=== PATIENT | female | born 1950 | race American Indian/Alaskan Native ===

== ENCOUNTER 2017-01-29 08:10 | Outpatient (CLI) | payer BC ==
--- NOTE | 2017-01-29 14:41 | Mammography Report ---
BILATERAL DIGITAL SCREENING MAMMOGRAM with CAD: 01/29/17 08:10:00 CLINICAL: Routine screening. COMPARISON:07/15/15 and 07/06/14 FINDINGS: The breasts are mostly fatty with bilateral retroareolar residual fibroglandular densities.A right inferior focal asymmetry is unchanged compared to prior exams. No mass, architectural distortion or suspicious calcifications. IMPRESSION: No mammographic evidence of malignancy. BI-RADS CATEGORY: 2 -- Benign RECOMMENDATION: Routine mammographic screening in one year. COMMENT: Patient follow-up letters are generated by our [employer] application.
== END 2017-01-29 08:11 | disposition home or self-care (01) ==
LOC: MAMMO 08:10
PROVIDERS: ATTEND Family Medicine Adult Medicine
DX: Z12.31 Encounter for screening mammogram for malignant neoplasm of breast (principal)
CPT/HCPCS: 77067; G0202

== ENCOUNTER 2020-03-20 13:32 | Outpatient (CLI) | payer MEDICARE | END 2020-03-20 13:33 | disposition home or self-care (01) | LOC: SPVWC 13:32 | PROVIDERS: ATTEND Surgery | DX: Z12.31 Encounter for screening mammogram for malignant neoplasm of breast (principal) | CPT/HCPCS: 77067 ==